=== PATIENT | female | born 1965 | race African-American/Black ===

== ENCOUNTER 2017-06-16 11:35 | Emergency (ER) | payer OTHER ==
--- NOTE | 2017-06-16 12:04 | ED CARDIAC/CP/PALPITATIONS ---
History of Present Illness General Chief Complaint: Palpitations Stated Complaint: PALPATATIONS HR 212 AT [facility] Source: patient, old records Exam Limitations: no limitations Vital Signs & Intake/Output Vital Signs & Intake/Output Vital Signs Date Time Temp Pulse Resp B/P B/P Pulse O2 O2 Flow FiO2 Mean Ox Delivery Rate 06/16 1158 99 Nasal 2.0L Cannula 06/16 1156 97.5 104 20 175/106 100 Nasal 2.0L Cannula 06/16 1154 204 170/100 06/16 1140 203 18 176/104 100 Nasal 2.0L Cannula Allergies Coded Allergies: NO KNOWN ALLERGIES (06/16/17) Reconcile Medications Hydrochlorothiazide 25 MG TABLET 1 TAB PO DAILY WATER RETENTION (Reported) Triage Note: PT TO [facility] WITH HR OF 212, EKG PERFORMED NOTED SVT. PT STATES SHE HASNT SLEPT WELL RECENTLY, DENIES ANY HEART CONDITIONS. 20G IV PLACED TO LAC, TRANSFERRED PT TO ROOM 8 FOR FURTHER EVAL, DR POLANCO IN ROOM TO EVAL. Triage Nurses Notes Reviewed? yes Onset: Just prior to arrival Duration: hour(s):, constant, continues in ED Timing: recent history Quality/Severity: moderate, severe, pressure Location: substernal Radiation: no radiation Activities at Onset: rest Prior Chest Pain/Card Workup: echocardiography, stress test Nitro Today/Relief: no nitro taken today Aspirin Today: no aspirin today Associated Symptoms: dizziness LMP (ages 10-50): post menopausal : No Patient currently breastfeeds: No HPI: One hour Prior to admission patient complains of rapid heart rate worse with exertion. She denies fever chills nausea vomiting diarrhea abdominal pain chest pain shortness breath headache dysuria rash bleeding. Past History Travel History Traveled to [place] past 21 day No Medical History Any Pertinent Medical History? see below for history Cardiovascular: SVT Musculoskeletal: ARHTITIS MUSCLE SPAMS IN LEGS Surgical History Surgical History: non-contributory Psychosocial History Who do you live with Patient/Self What is your primary language Maltese Tobacco Use: Quit >30 days ago ETOH Use: denies use Illicit Drug Use: denies illicit drug use Family History Hx Contributory? No Review of Systems Review of Systems Constitutional: Reports: see HPI, malaise. EENTM: Reports: no symptoms. Respiratory: Reports: no symptoms. Cardiovascular: Reports: see HPI, palpitations. GI: Reports: no symptoms. Genitourinary: Reports: no symptoms. Musculoskeletal: Reports: no symptoms. Skin: Reports: no symptoms. Neurological/Psychological: Reports: no symptoms. Hematologic/Endocrine: Reports: no symptoms. Immunologic/Allergic: Reports: no symptoms. All Other Systems: Reviewed and Negative Physical Exam Physical Exam General Appearance: well developed/nourished, alert, awake, anxious, moderate distress, obese Head: atraumatic, normal appearance Eyes: Bilateral: normal appearance, PERRL, EOMI. Ears, Nose, Throat: normal pharynx, normal ENT inspection, hearing grossly normal Neck: normal inspection, supple, full range of motion, no midline tenderness Respiratory: normal breath sounds, chest non-tender, no respiratory distress, quiet respiration, lungs clear Cardiovascular: regular rate/rhythm, normal peripheral pulses, tachycardia, norml femoral pulses equa Peripheral Pulses: 4+ carotid (R), 4+ carotid (L) Gastrointestinal: normal bowel sounds, soft, non-tender, no organomegaly Back: normal inspection, normal range of motion Extremities: normal inspection, normal capillary refill, normal range of motion, no edema Neurologic/Psych: no motor/sensory deficits, awake, alert, oriented x 3, normal gait, normal mood/affect, contracts paralegal II-XII nml as tested Reflexes: 2+: bicep (R), bicep (L). Skin: intact, normal color, warm/dry Lymphatic: no anterior cervical rene Core Measures ACS in differential dx? No CVA/TIA Diagnosis No Sepsis Present: No Sepsis Focused Exam Completed? No Progress Differential Diagnosis: atrial fibrillation, hyperthyroid, PSVT, PVCs/PACs Plan of Care: Orders Procedure Date/time Status TSH REFLEX 06/16 1153 Complete TROPONIN LEVEL 06/16 1153 Complete MAGNESIUM 06/16 1153 Complete COMPREHENSIVE METABOLIC PANEL 06/16 1153 Complete CBC WITHOUT DIFFERENTIAL 06/16 1153 Complete EKG 06/16 1137 Active Laboratory Tests 06/16/ 1215: Anion Gap 10, Estimated GFR 58 L, BUN/Creatinine Ratio 19.0, Glucose 119 H, Calcium 9.4, Magnesium 1.8, Total Bilirubin 0.4, AST 16, ALT 23, Alkaline Phosphatase 98, Troponin I 0.02, Total Protein 6.8, Albumin 3.8, Globulin 3.0, Albumin/Globulin Ratio 1.3, TSH &T3 &Free T4 Intrp 1.560, CBC w Diff NO MAN DIFF REQ, RBC 4.88, MCV 81.1, MCH 26.9 L, MCHC 33.2, RDW 13.5, MPV 7.1 L, Gran % 56.9, Lymphocytes % 33.6, Monocytes % 6.5, Eosinophils % 2.4, Basophils % 0.6, Absolute Granulocytes 3.3, Absolute Lymphocytes 1.9, Absolute Monocytes 0.4, Absolute Eosinophils 0.1, Absolute Basophils 0 Initial ED EKG: normal axis, normal intervals, normal p-waves, normal QRS complex, rhythm (SVT) Prior EKG: changed Rhythm Strip: sinus tachycardia Comments: Adenocard 6 mg IV changes rate from 200 to 90's without complication. Departure Departure Time of Disposition: 1340 Disposition: HOME OR SELF CARE Condition: Stable Clinical Impression Primary Impression: SVT (supraventricular tachycardia) Referrals: Bud GAINES,Sukhdeep (PCP/Family) Norah GAINES PHD,Riley Miller Call for cardiology for follow up Departure Forms: Customer Survey General Discharge Information RELEASE- WORK Prescriptions: Current Visit Scripts Metoprolol Tartrate 1 TAB PO BID PRN palpitations #60 TAB May repeat in 30 minutes if no decrease in palpitations. Critical Care Note Critical Care Note Critical Care Time: 30-74 min (40)
[2017-06-16] MEDS ORDERED: HYDROCHLOROTHIA25 M1 PO (12:10)
[2017-06-16 12:26] LABS: ABSOLUTE BASOPHIL COUNT 0 /CUMM (0.0-0.2); ABSOLUTE EOSINOPHIL COUNT 0.1 /CUMM (0.0-0.7); ABSOLUTE GRANULOCYTE CT 3.3 /CUMM (1.4-6.5); ABSOLUTE LYMPH COUNT 1.9 /CUMM (1.2-3.4); ABSOLUTE MONOCYTE COUNT 0.4 /CUMM (0.10-0.60); BASOPHIL % 0.6 % (0.0-2.0); EOSINOPHIL % 2.4 % (0-5); GRANULOCYTE % 56.9 % (42.2-75.2); HEMATOCRIT 39.6 % (37-47); MEAN CORPUSCULAR HGB 26.9 PG (27.0-31.0); MEAN CORPUSCULAR HGB CONC 33.2 G/DL (33.0-37.0); MEAN CORPUSCULAR VOLUME 81.1 FL (81.0-99.0); MEAN PLATELET VOLUME 7.1 FL (7.4-10.4); PLATELET COUNT 363 /CUMM (130-400); RBC DISTRIBUTION WIDTH 13.5 % (11.5-14.5); RED BLOOD CELL CT 4.88 /CUMM (4.20-5.40); WHITE BLOOD CELL COUNT 5.8 /CUMM (4.8-10.8)
[2017-06-16] MEDS ORDERED: METOPROLOL TART25 M1 PO (13:44)
[2017-06-16 13:56] VITALS: BP 162/90
== END 2017-06-16 14:15 ==
LOC: ERH 11:35
PROVIDERS: Emergency Medicine
DX: I47.1 Supraventricular tachycardia (principal)
CPT/HCPCS: 93005; 93010; 96361; 96374; 99291; J0153